=== PATIENT | male | born 1980 | race Caucasian/White ===

== ENCOUNTER 2017-02-11 11:38 | Emergency (ER) | payer OTHER ==
[~2017-02-11] VITALS: Ht 188 cm; Wt 113.4 kg
[~2017-02-11 11:38] MED LIST: BACTRIM DS 8001 TAB PO; BACTROBAN22 TP; GENTAMICIN O5 ML/BOT OP; IBUPROFEN800 MG PO; KEFLEX 500MG.500 MG PO; KEFLEX500 M1 PO; LISINOPRIL20 MG PO; METHADONE HC10 MG/M3 PO; NAPROSYN 500MG500 MG PO; NOMEDS *; SULFAMETHOXAZOL1 TA6 PO; TAMIFLU 75MG CA75 MG PO; TESSALON PERLE100 MG PO; TYLENOL W/CODEI1 TA2 PO; Tramadol HCl50 MG PO; VIBRAMYCIN 100100 MG PO; VICODIN 5/500 T1 TAB PO; ZYVOX600 MG PO
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
[2017-02-11] MEDS ORDERED: KETOROLAC0.03 ML/DR OP (12:28)
[2017-02-11 12:33] VITALS: BP 172/101
== END 2017-02-11 12:33 | disposition home or self-care (01) ==
LOC: UTC 11:38
DX: S05.11XA Contusion of eyeball and orbital tissues, right eye, initial encounter (principal); W22.8XXA Striking against or struck by other objects, initial encounter; I10 Essential (primary) hypertension